=== PATIENT | female | born 1990 ===

== ENCOUNTER 2016-04-24 21:05 | Observation (INO) | payer OTHER ==
[2016-04-06 04:28] VITALS: O2SAT 99
[~2016-04-24 21:05] MED LIST: SODIUM CHLORIDE 0.9% FLUSH 10 ML SOL IV PRN
[2016-04-24 21:30] VITALS: RESP 20
[2016-04-24] MEDS ORDERED: OXYTOCIN 10000 MU/ML SOL IM PRN (23:48)
[2016-04-24] MEDS ORDERED: MEPIVACAINE HCL 1% MPF 30 ML SOL INFIL PRN (23:48)
[2016-04-24] MEDS ORDERED: CARBOPROST 250 MCG/ML SOL IM PRN (23:48)
[2016-04-24] MEDS ORDERED: LACTATED RINGERS 1,000 ML IV PRN (23:48)
[2016-04-24] MEDS ORDERED: METHYLERGONOVINE MALEATE 0.2 MG/ML SOL IM PRN (23:48)
[2016-04-24] MEDS ORDERED: FENTANYL CITRATE 50 MCG/ML SOL IV PRN (23:48)
[2016-04-24 23:58] LABS: BASOPHILS % (AUTO) 0 % (0-3); EOSINOPHILS % (AUTO) 1 % (0-9); HEMATOCRIT 31 % (35-47); MEAN CORPUSCULAR HGB CONC 34.6 gm/dl (32.0-36.0); MONOCYTES % (AUTO) 6.9 % (0-12)
[2016-04-25 04:34] VITALS: BP 116/77; PULSE 81; TEMP 96.6
[2016-04-25] MEDS ORDERED: SODIUM CHLORIDE 0.9% FLUSH 10 ML SOL IV SCH (05:30)
[2016-04-25 08:58] LABS: APPEARANCE,URINE Cloudy; BILIRUBIN,URINE 1+ (NEGATIVE); COLOR,URINE Red; GLUCOSE, URINE (UA) NEGATIVE (NEGATIVE); KETONES,URINE TRACE (NEGATIVE); LEUKOCYTE ESTERASE ,URINE 2+ (NEGATIVE); NITRATE,URINE NEGATIVE (NEGATIVE); OCCULT BLOOD,URINE 3+ (NEG-TRACE); PH,URINE 6.5; UROBILINOGEN,URINE 0.2 (0.2-1.0 EU)
[2016-04-25 09:09] LABS: ICTOTEST,URINE NEGATIVE (NEGATIVE); RBC,URINE TNTC (0-3AV/HPF)
== END 2016-04-25 09:40 | disposition home or self-care (01) ==
LOC: OB 21:05
PROVIDERS: ADMIT Family Medicine; ATTEND Family Medicine
DX: O60.03 Preterm labor without delivery, third trimester (principal); O23.43 Unspecified infection of urinary tract in pregnancy, third trimester; Z3A.37 37 weeks gestation of pregnancy
CPT/HCPCS: 36415; 81001; 85025

== ENCOUNTER 2016-05-05 07:02 | Inpatient (IN) | payer OTHER ==
[2016-05-05] MEDS ORDERED: FENTANYL CITRATE 50 MCG/ML SOL IV PRN (07:52)
[2016-05-05] MEDS ORDERED: LACTATED RINGERS 1,000 ML IV PRN (07:52)
[2016-05-05] MEDS ORDERED: METHYLERGONOVINE MALEATE 0.2 MG/ML SOL IM PRN (07:52)
[2016-05-05] MEDS ORDERED: SODIUM CHLORIDE 0.9% FLUSH 10 ML SOL IV PRN (07:52)
[2016-05-05] MEDS ORDERED: CARBOPROST 250 MCG/ML SOL IM PRN (07:52)
[2016-05-05] MEDS ORDERED: OXYTOCIN 10000 MU/ML SOL IM PRN (07:52)
[2016-05-05] MEDS ORDERED: MEPIVACAINE HCL 1% MPF 30 ML SOL INFIL PRN (07:52)
[2016-05-05 08:29] LABS: BASOPHILS % (AUTO) 1 % (0-3); EOSINOPHILS % (AUTO) 1 % (0-9); HEMATOCRIT 30 % (35-47); MEAN CORPUSCULAR HGB CONC 34.9 gm/dl (32.0-36.0); MONOCYTES % (AUTO) 7.6 % (0-12); NEUTROPHILS % (AUTO) 72.7 % (37-80)
[2016-05-05] MEDS ORDERED: APAP/HYDROCODONE 325/5 TAB PO PRN (10:12)
[2016-05-05] MEDS ORDERED: FLEET ENEMA PR PRN (10:12)
[2016-05-05] MEDS ORDERED: WITCH HAZEL 1 EA PAD TOP PRN (10:12)
[2016-05-05] MEDS ORDERED: TEMAZEPAM 15MG 15 MG CAP PO PRN (10:12)
[2016-05-05] MEDS ORDERED: BENZOCAINE/MENTHOL 1 SPR TOP PRN (10:12)
[2016-05-05] MEDS ORDERED: METHYLERGONOVINE MALEATE 0.2 MG TAB PO PRN (10:12)
[2016-05-05] MEDS ORDERED: BISACODYL 10 MG SUP PR PRN (10:12)
[2016-05-05] MEDS ORDERED: IBUPROFEN 600 MG TAB ONE (11:38)
[2016-05-05] MEDS: IBUPROFEN 600 MG TAB PO PRN ×2 (11:49→17:39)
[2016-05-05] MEDS: SODIUM CHLORIDE 0.9% FLUSH 10 ML SOL IV SCH ×2 (11:49→17:32)
[2016-05-05] MEDS: DOCUSATE SODIUM 100 MG SGL PO SCH (22:01)
[2016-05-06] MEDS: SODIUM CHLORIDE 0.9% FLUSH 10 ML SOL IV SCH ×2 (05:50→08:00)
[2016-05-06] MEDS: DOCUSATE SODIUM 100 MG SGL PO SCH ×2 (09:15→21:47)
[2016-05-06] MEDS: IBUPROFEN 600 MG TAB PO PRN ×3 (09:15→21:47)
[2016-05-06 10:55] LABS: ABO O
[2016-05-06 10:56] LABS: RH TYPE Negative
[2016-05-06] MEDS ORDERED: SERTRALINE HYDROCHLORIDE 50 MG TAB ONE (17:27)
[2016-05-06] MEDS ORDERED: SERTRALINE HYDROCHLORIDE 50 MG TAB PO SCH (18:00)
[2016-05-07 02:54] VITALS: RESP 18; TEMP 97
[2016-05-07] MEDS: IBUPROFEN 600 MG TAB PO PRN (07:40)
[2016-05-07] MEDS ORDERED: SERTRALINE HYDROCHLORIDE 50 MG TAB ONE (08:52)
[2016-05-07] MEDS: DOCUSATE SODIUM 100 MG SGL PO SCH (08:53)
[2016-05-07] MEDS ORDERED: MULTIVITAMIN2 1 EA TAB PO SCH (09:00)
[2016-05-07] MEDS ORDERED: SERTRALINE HYDROCHLORIDE 50 MG TAB PO SCH (09:00)
[2016-05-07] MEDS ORDERED: FOLIC ACID 1 MG TAB PO SCH (09:00)
[2016-05-07 11:00] VITALS: BP 110/70; PULSE 95; O2SAT 99
== END 2016-05-07 10:10 | disposition home or self-care (01) | DRG 560 ==
LOC: OB 07:02 → OBSVTOIN 07:02 → EDSTATUS 07:15
PROVIDERS: ADMIT Family Medicine; ATTEND Family Medicine
PROC: 10907ZC Drainage of Amniotic Fluid, Therapeutic from Products of Conception, Via Natural or Artificial Opening (ICD-10-PCS; principal; 2016-05-05)
PROC: 10E0XZZ Delivery of Products of Conception, External Approach (ICD-10-PCS; 2016-05-05)
PROC: 0UCG7ZZ Extirpation of Matter from Vagina, Via Natural or Artificial Opening (ICD-10-PCS; 2016-05-05)
DX: O72.1 Other immediate postpartum hemorrhage (principal); Z37.0 Single live birth; Z3A.39 39 weeks gestation of pregnancy
CPT/HCPCS: 36415; 59025; 85018; 85025; 86900; 86901; J0670; J2210; J2590

== ENCOUNTER 2017-05-29 22:05 | Emergency (ER) | payer OTHER ==
[2017-05-29 22:24] VITALS: BP 124/85; PULSE 83; RESP 16; TEMP 97.9; O2SAT 100
[2017-05-29 23:01] LABS: BASOPHILS % (AUTO) 1 % (0-3); EOSINOPHILS % (AUTO) 4 % (0-9); HEMATOCRIT 37 % (35-47); MEAN CORPUSCULAR HGB CONC 35.5 gm/dl (32.0-36.0); MEAN CORPUSCULAR VOLUME 83 fL (81-99); MONOCYTES % (AUTO) 8.5 % (0-12); NEUTROPHILS % (AUTO) 51.8 % (37-80)
== END 2017-05-29 23:59 | disposition home or self-care (01) ==
LOC: ED 22:05
DX: N92.0 Excessive and frequent menstruation with regular cycle (principal)
CPT/HCPCS: 84443; 84703; 85025; 99282